=== PATIENT | male | born 1960 | race Caucasian/White ===

== ENCOUNTER 2019-06-06 09:16 | Emergency (ER) | payer OTHER ==
[~2019-06-06] VITALS: Ht 170.2 cm; Wt 75.0 kg
[2019-06-06] MEDS ORDERED: SODIUM CHLORIDE 0.9% 1,000 ML IV ONE (09:34)
[2019-06-06] MEDS ORDERED: MORPHINE SULFATE 4 MG/ML CPJ (NOT FOR IM USE) IV STA (09:34)
[2019-06-06] MEDS ORDERED: ONDANSETRON HCL 4MG/2ML INJ IV STA (09:34)
[2019-06-06 10:30] LABS: BASOPHILS % 0.5 % (0.0-2.0); HEMATOCRIT. 46.7 % (42.0-52.0); HEMOGLOBIN. 16.6 g/dL (14.0-18.0); LYMPHOCYTES % 17.7 % (20.0-50.0); MEAN CORPUSCULAR HEMOGLOBIN 32.3 pg (28.0-32.0); MEAN CORPUSCULAR VOLUME 91.1 fL (80.0-94.0); MEAN PLATELET VOLUME 10.4 fl (7.4-10.4); MONOCYTES % 5.7 % (2.0-8.0); NEUTROPHILS % 75.1 % (40.0-76.0); PLATELET 184 x1000/uL (130-400); RED BLOOD CELL COUNT 5.13 mill/uL (4.7-6.1); RED CELL DISTRIBUTION WIDTH 12.7 % (11.6-14.6)
[2019-06-06 10:34] LABS: CHLORIDE 106 mEq/L (98-107)
[2019-06-06 10:38] LABS: PROTHROMBIN TIME 11.3 sec (9.6-11.0)
[2019-06-06] MEDS ORDERED: IOHEXOL-300 100 ML BOTTLE ONE (11:38)
[2019-06-06] MEDS ORDERED: ONDANSETRON HCL 4MG/2ML INJ IV ONE (12:30)
[2019-06-06] MEDS ORDERED: MORPHINE SULFATE 10 MG/ML CPJ IV ONE (12:30)
[2019-06-06 13:36] VITALS: BP 135/93
== END 2019-06-06 14:11 | disposition short-term general hospital (02) ==
LOC: ER 09:36
DX: S22.22XA Fracture of body of sternum, initial encounter for closed fracture (principal); S39.81XA Other specified injuries of abdomen, initial encounter; S79.811A Other specified injuries of right hip, initial encounter; V43.52XA Car driver injured in collision with other type car in traffic accident, initial encounter; W22.11XA Striking against or struck by driver side automobile airbag, initial encounter; Y93.89 Activity, other specified; Y92.488 Other paved roadways as the place of occurrence of the external cause
CPT/HCPCS: 36415; 70450; 70486; 71045; 71260; 72125; 74177; 80053; 83690; 84484; 85025; 85610; 93005; 96374; 96375; 96376; 99291; J2270; J2405; J7030; Q9967